=== PATIENT | male | born 1955 | race Caucasian/White ===

== ENCOUNTER 2017-05-08 06:26 | Day surgery (SDC) | payer OTHER ==
[2017-05-08] VITALS (13 sets, daily range): BP systolic 113–140; BP diastolic 79–86; PULSE 62–86; RESP 16–17; TEMP 97.7–98.8; O2SAT 94–97
[~2017-05-08] VITALS: Ht 182.9 cm; Wt 92.0 kg
[~2017-05-08 06:26] MED LIST: ASPI81CH3 CHEW; ATOR20TA15 PO; CIAL5TAB PO; FLUT50SP EACH NARE; GLYB5TAB3 PO; LISI10TA3 PO; METF1000 PO; PIOG30TA4 PO; RANI150T PO; ZYRT10CA PO
[2017-05-08] MEDS ORDERED: NS 1000P @30 MLS/HR (KVO) IV SCH (06:45)
[2017-05-08] MEDS ORDERED: METF1000 PO (07:15)
[2017-05-08] MEDS ORDERED: FLUT1SPR5 EACH NARE (07:15)
[2017-05-08] MEDS ORDERED: PIOG30TA4 PO (07:15)
[2017-05-08] MEDS ORDERED: GLYB5TAB3 PO (07:15)
[2017-05-08] MEDS ORDERED: LISI10TA3 PO (07:15)
[2017-05-08] MEDS ORDERED: RANI150T PO (07:15)
[2017-05-08] MEDS ORDERED: ATOR20TA15 PO (07:15)
[2017-05-08] MEDS ORDERED: ASPI81CH PO (07:15)
[2017-05-08] MEDS ORDERED: CIAL5TAB PO (07:15)
[2017-05-08] MEDS ORDERED: HEPARIN-NS/PF INJ 500 ML ONE (09:03)
[2017-05-08] MEDS ORDERED: MIDAZOLAM HCL 2 MG/2 ML VIAL ONE (09:04)
[2017-05-08] MEDS ORDERED: HEPARIN SODIUM - IV 10,000 UNITS/10 ML VIAL ONE (09:04)
[2017-05-08] MEDS ORDERED: STERILE WATER FOR INJECTION 10 ML VIAL ONE (09:28)
[2017-05-08] MEDS ORDERED: BIVALIRUDIN 250 MG VIAL ONE (09:28)
[2017-05-08] MEDS ORDERED: CLOPIDOGREL 300 MG TAB ONE (10:03)
[2017-05-08] MEDS ORDERED: SODIUM CHLOR 0.9% 1000 ML INJ 1,000 ML IV SCH (10:08)
[2017-05-08] MEDS ORDERED: BIVALIRUDIN INJ 250 MG in SODIUM CHLORIDE 0.9% INJ 50 ML IV SCH (10:08)
[2017-05-08] MEDS ORDERED: NITROGLYCERIN 400 MCG/SPRAY 4.9 GM BOTTLE SL ONE (10:08)
[2017-05-08] MEDS ORDERED: BACITRACIN OINT 0.9 GM PKT TOP ONE (10:15)
[2017-05-08] MEDS ORDERED: oxyCODONE/ACETAMINOPHEN 5 MG/325 MG TAB PO PRN (10:15)
[2017-05-08] MEDS ORDERED: oxyCODONE/ACETAMINOPHEN 10 MG/325 MG TAB PO PRN (10:15)
[2017-05-08] MEDS ORDERED: LIDOCAINE 2% JELLY 30 ML TUBE TOP PRN (10:15)
[2017-05-08] MEDS ORDERED: ACETAMINOPHEN 325 MG TAB PO PRN (10:15)
[2017-05-08] MEDS ORDERED: MORPHINE SULFATE 4 MG/ML INJ IV PUSH PRN (10:15)
[2017-05-08] MEDS ORDERED: ONDANSETRON HCL 4 MG/2 ML VIAL IVP PRN (10:15)
[2017-05-08] MEDS ORDERED: MISC INFORMATION XX ONE (10:15)
[2017-05-08] MEDS ORDERED: FAMOTIDINE 20 MG TAB PO PRN (10:15)
[2017-05-08] MEDS ORDERED: CLOPIDOGREL 300 MG TAB PO ONE (10:15)
[2017-05-08] MEDS ORDERED: TEMAZEPAM 15 MG CAP PO PRN (10:15)
[2017-05-08] MEDS ORDERED: ATOR40TA16 PO (10:19)
[2017-05-08] MEDS ORDERED: PLAV75TA29 PO (10:19)
[2017-05-08] MEDS ORDERED: METO25TA3 PO (10:19)
[2017-05-08] MEDS ORDERED: LISI-519 PO (10:20)
--- NOTE | 2017-05-08 10:29 | CATHPROC ---
[employer] HIS Report Study Information Study Number Admission Scheduled Start Study Start [id number] May 08 2017 6:26AM 05/08/2017 May 08 2017 9:02AM [place] [facility] Cardiac Catheterization Admit Source Facility Department Other [facility] - Trouble Clerk Physician and Clinical Staff Initial Jan Magaña Equity Holder Freddie Adhikari,RN Recorder Devin Granda RCIS(BS) Scrub Timothy BestRT(R) Procedures Performed Procedure Location (Site) Vessel Name Coronary Angiograms LCA Left Coronary Coronary Angiograms RCA Right Coronary Drug Eluting Inflatio LAD Mid Left Coronary L Heart Cath LV Gram-hand inj. LV LV Ventricle PTCA LAD Mid Left Coronary Wire insertion Radial (right) Radial Art. Equipment Time Operator Catalyst Concentration Description Size Mfg Part Number Used/Scraped TRANSDUCER, TRUWAVE [id number] 09:25 BRYANT JESUS * Used W/STOCKCOCK *[id number] CARDIOVASCULAR CATHETER, CORONARY CLASSIC [id number] 09:41 Used SYSTEMS INC. 1.25MM *[id number] CARDIOVASCULAR WIRE, VIPER ADVANCE [id number] 09:38 Used SYSTEMS INC. CORONARY FLP *[id number] *[id number] *[id number] 09:25 ZOOM TV INDUSTRIES PACK, CCL CUSTOM * Used *[id number] 09:25 BDNA SUPPORT, ARTERIAL ADULT 10037 Used [id number] 09:25 ZOOM TV PACER PEN, SKIN DUAL W/ RULER * Used *[id number] BALLOON, 1.25 X 6MM SPRINTER [id number] 09:37 MEDTRONIC 6MM Used LEGEND OTW *[id number] 09:50 MEDTRONIC BALLOON, 3.0 X 20MM EUPHORA 20MM Used *[id number] STENT, 3.0 34 RESOLUTE [id number] 09:58 MEDTRONIC 3.0 34 Used INTEGRITY RX *[id number] 09:53 Virally 30 RANDALL INDEFLATOR Used *[id number] BAND, RADIAL COMPRESSION TR [id number] 10:05 Virally 24CM Used SHORT 24 *[id number] SHEATH, FR6 RADIAL PRELUDE 09:25 Virally FR 6 [id number] Used EASE 11CM [id number] 09:25 Virally WIRE, EXCHANGE 260CM 3MMJ 260CM Used *[id number] 09:25 NYCOMED OMNIPAQUE, 350 MG, 150ML 150ML [id number] Used [id number] 09:25 FRANCOIS MEDICAL BLANKET,WARM AIR CCL * Used *[id number] WIRE, RUNTHROUGH NS FLOPPY 09:35 OKWave 300CM Used .014 300CM *[id number] Equipment Model, Serial, Lot Number and Expiration Data Description Model Number Serial Number Lot Number Expiration Date BALLOON, 1.25 X 6MM SPRINTER [id number] 01-06-2020 LEGEND OTW STENT, 3.0 34 RESOLUTE [id number] 10-10-2018 INTEGRITY RX WIRE, VIPER ADVANCE CORONARY [id number] 09-30-2018 History: Current Medications Medication Dosage/Unit Route Frequency Last Date/Time Taken ASA Statins (any) History: Allergies Allergy Reaction No Known Allergies History: Risk Factors Family History of Hypertension Dyslipidemia Previous MA Previous Heart Failure Premature CAD Yes Yes Yes No No Prior Valve Prior PCI Prior CABG Surgery No No No Cerebrovascular Peripheral Artery Chronic Lung On Dialysis Diabetes Diabetes Therapy Disease Disease Disease No No No No Yes Oral History: Symptoms/Diagnosis Selection Items Chest pain History: Stress Tests Stress or Imaging Studies Performed Yes Standard Exercise Stress Test No Stress Echo No Stress Test SPECT Stress Test SPECT Result Stress Test SPECT Ischemia Risk/Extent Yes Positive Low Stress Test CMR No Cardiac CTA Coronary Calcium Score No No History: Other Current Smoker Method Quit Packs a Day Years Used Pack Years No Cigarettes 10 Years Ago 1 20 20 Labs Hgb (g/dl) Hct (%) WBC (l/cumm) Platelets (thousands) 12.00-18.00 37.00-55.00 4.80-10.80 140.00-450.00 14.8 44.4 6.8 220 Glucose (mg/dl) BUN (mg/dl) Creatinine (mg/dl) BUN:Creatinine (1:x) 60.00-110.00 8.00-20.00 0.10-9.00 10.00-20.00 79 15 0.8 18.8 Na (meq/l) K (meq/l) 138.00-146.00 3.80-5.10 141 4.4 CPK-MB (ng/ML) 0.00-7.00 Not Drawn Medication Medication Total Dose (Bolus/Oral) Medication Total Dosage/Unit 1% XYLOCAINE 20 mL ANGIOMAX BOLUS 14 mL FENTANYL 50 mcg HEPARIN 3000 units NITROGLYCERIN S/L 0.4 mg NTG (IC) 100 mcg PLAVIX 600 mg RADIAL COCKTAIL 5 mL (Bolus) VERSED 2 mg Medications (Bolus/Oral) Medication Time Given Dosage/Unit Administered By Reason VERSED 05/08/2017 9:20:00 AM 2 mg Freddie Adhikari 2 mg VERSED given in lab by Freddie Adhikari RN in Left Antecubital via Peripheral IV. Ordered by Jan Diaz. FENTANYL 05/08/2017 9:21:00 AM 50 mcg Freddie Adhikari 50 mcg FENTANYL given in lab by Freddie Adhikari RN in Left Antecubital via Peripheral IV. Ordered by Jan Rojas. 1% XYLOCAINE 05/08/2017 9:22:54 AM 20 mL Jan Diaz 20 mL 1% XYLOCAINE given in lab by Jan Diaz in Right Radial via Subcutaneous. Ordered by Jan Diaz. Ntg 200mcg Verapamil 2.5mg Heparin RADIAL COCKTAIL 05/08/2017 9:23:37 AM 5 mL (Bolus) Jan Diaz 2000U 5 mL (Bolus) RADIAL COCKTAIL given in lab by Jan Diaz in Right Radial via Radial. Using [Soluti on Name]. Ordered by Jan Diaz. Reason: Ntg 200mcg. HEPARIN 05/08/2017 9:24:00 AM 3000 units Freddie Adhikari 3000 units HEPARIN given in lab by Freddie Adhikari RN in Left Antecubital via Peripheral IV. Ordered b y Jan Diaz. ANGIOMAX BOLUS 05/08/2017 9:33:00 AM 14 mL Freddie Adhikari 14 mL ANGIOMAX BOLUS given in lab by Freddie Adhikari RN in Left Antecubital via Peripheral IV. Ordered by Jan Diaz. NTG (IC) 05/08/2017 10:01:07 AM 100 mcg Jan Diaz 100 mcg NTG (IC) given in lab by Jan Diaz via Intra-coronary. Ordered by Jan Diaz. PLAVIX 05/08/2017 10:07:00 AM 600 mg Freddie Adhikari 600 mg PLAVIX given in lab by Freddie Adhikari RN via Oral. Ordered by Jan Diaz. NITROGLYCERIN S/L 05/08/2017 10:09:00 AM 0.4 mg Freddie Adhikari 0.4 mg NITROGLYCERIN S/L given in lab by Freddie Adhikari RN via Sublingual. Ordered by Jan Diaz. Medication (Drip) Medication Time Given Dosage/Unit Concentration/Unit Diluent (ml) Solution ANGIOMAX DRIP 05/08/2017 9:35:00 AM 1.75 mg/kg/hr 250 mg 50 NaCl .9 1.75 mg/kg/hr ANGIOMAX DRIP given in lab by Freddie Adhikari RN in Left Antecubital via Peripheral IV. Pump/Drip Flow = 32.06 ml/hr using NaCl .9 with a concentration of 250 mg in 50 ml. Ordered by Jan Diaz. IV Solutions 05/08/2017 9:02:29 AM 0 mL (IV) 500 NaCl .9 Patient arrived on IV Solutions in Left Antecubital via Peripheral IV. Pump/Drip Flow = 20 ml/hr usin g NaCl .9. Initial Case Assessment Cardiovascular HR Rhythm Chest Pain 68 SR 0 Edema Present Skin color Skin None Normal Warm Dry Circulatory - Right Pulses Dorsalis Pedis Femoral Radial 3 3 3 Scale (0,1,2,3,4,d) Circulatory - Left Pulses Dorsalis Pedis Femoral Radial 3 3 Scale (0,1,2,3,4,d) Circulatory - Lower Extremities Color Lower Right Color Lower Left Normal Normal Neurological State Oriented to time-place- Alert Moves all extremities person Respiration - General Respiration Rate SpO2 (%) (B/min) 12 100 Chronological Log Time Study Chronological Log 9:02:13 Patient arrived via Bed. 9:02:14 Patient Name, D.O.B, / Armband Verified By R.N. 9:02:15 Consent signed by the physician and the patient and verified by the Trouble Clerk staff. 9:02:15 Pre-op and post- op instructions given; patient acknowledges understanding of instructions. 9:02:16 Verbal Stimulation=2 Physical Stimulation=2 Airway=2 Respiration=2 TOTAL=8. (0=absent, 1=li mited, 2=present) 9:02:18 Allens test performed on the right radial and ulnar artery. 9:02:21 Patient has been NPO for Less than 6Hrs. 9:02:22 Skin Breakdown- 9:02:23 Patient Warmer Placed on the Table. 9:02:28 A # 20 IV was noted in the Antecubital (left). Grade = 0 9:02:29 Patient arrived on IV Solutions in Left Antecubital via Peripheral IV. Pump/Drip Flow = 20 ml/hr using NaCl .9. 9:02:30 History and physical on the chart or being dictated. Assessment: Initial Case, HR=68 BPM, Rhythm=SR, Chest Pain=0, Edema=None, Color=Normal, Skin = W arm, Dry Right Pulses: Miguel Ped=3, Femoral=3, Radial=3 Left Pulses: Miguel Ped=3, Femoral=3 9:02:31 Lower Right Extremities: Color=Normal Lower Left Extremities: Color=Normal Neurological: State=Alert, Ox3, KENT Respiration: Resp=12 B/min, OzJ6=213 % Vitals capture started with the following parameters, Patient=Adult, Interval=5 min, Initial Pre snytz=174 mmHg, 9:02:48 Deflation Rate=5 mmHg 9:04:04 HR=63 bpm, NLRS=891/77 mmhg, SpO2=99.0 %, Resp=7 B/min, Pain=0, Kulwinder=10, Cervantes=2 9:09:03 HR=75 bpm, UERG=787/86 mmhg, SpO2=99.0 %, Resp=14 B/min, Pain=0, Kulwinder=10, Cervantes=2 9:13:36 HR=64 bpm, IMCQ=907/75 mmhg, SpO2=99.0 %, Resp=16 B/min, Pain=0, Kulwinder=10, Cervantes=2 9:13:57 Pressure channel 1 zeroed. 9:14:41 Right Radial and groin(s) prepped with 2% chlorhexidine, and with a 3 min. waiting time. 9:14:47 MD paged 9:18:31 HR=73 bpm, BHRY=672/84 mmhg, SpO2=99.0 %, Resp=17 B/min, Pain=0, Kulwinder=10, Cervantes=2 9:19:05 MD arrived. 9:20:00 2 mg VERSED given in lab by Freddie Adhikari RN in Left Antecubital via Peripheral IV. Ordered by Jan Diaz. 9:20:18 Reference ECG taken 9:21:00 50 mcg FENTANYL given in lab by Freddie Adhikari RN in Left Antecubital via Peripheral IV. Ord ered by Jan Diaz. Time Out. Correct patient, correct procedure,correct physician, power injector not loaded with c karlenet with surgical 9::14 team present. Time Out Concurred by MD, individual staff in procedure 9::52 Case Start 9::54 20 mL 1% XYLOCAINE given in lab by Jan Diaz in Right Radial via Subcutaneous. Ordered by Jan Diaz. A SHEATH, FR6 RADIAL PRELUDE EASE 11CM FR 6 was advanced into the Radial (right) using the Percu whitney 9:23:00 technique. 9:23:02 Access site was RIGHT Radial Artery. 9::28 HR=79 bpm, TMFY=455/79 mmhg, SpO2=94.0 %, Resp=0 B/min, Pain=0, Kulwinder=10, Cervantes=2 5 mL (Bolus) RADIAL COCKTAIL given in lab by Jan Diaz in Right Radial via Radial. Using [S olution Name]. 9:23:37 Ordered by Jan Diaz. Reason: Ntg 200mcg. A JR 5.0 INFINITI CATHETER FR 6 was advanced over a wire. OMNIPAQUE, 350 MG, 150ML 150ML was use d for 9:24:00 injections. 9:24:00 3000 units HEPARIN given in lab by Freddie Adhikari RN in Left Antecubital via Peripheral IV. Ordered by Jan Diaz. Recorded Pressure: LV, HR=77, Condition=Condition 1 9:24:53 (Left Ventricle) LV 120/2/16 9:25:09 The LV was manually injected with 8 cc's and visualized. OMNIPAQUE, 350 MG, 150ML 150ML used . Recorded Pressure: LV, Ao, HR=76, Condition=Condition 1 9:25:20 (Left Ventricle) LV 118/5/12, (Aorta) Ao 125/61/87 9:25:30 The RCA was injected and visualized at various angles. OMNIPAQUE, 350 MG, 150ML 150ML used. After removing the current catheter a JL 3.5 INFINITI CATHETER FR 6 was advanced over a WIRE, EX CHANGE 260CM 9:26:45 3MMJ 260CM. 9:27:00 The LCA was injected and visualized at various angles. OMNIPAQUE, 350 MG, 150ML 150ML used. 9::27 HR=77 bpm, RFNA=056/71 mmhg, SpO2=91.0 %, Resp=13 B/min, Pain=0, Kulwinder=10, Cervantes=2 Recorded Pressure: Ao, HR=78, Condition=Condition 1 9:28:32 (Aorta) Ao 109/64/82 9:30:09 Catheter was removed A AL 1.5 GUIDE CATHETER FR 6 was advanced over a wire. OMNIPAQUE, 350 MG, 150ML 150ML was used f or 9:31:52 injections. 14 mL ANGIOMAX BOLUS given in lab by Freddie Adhikari RN in Left Antecubital via Peripheral IV. Or dered by Joe, 9:33:00 Jan. 9:33:26 HR=89 bpm, EETZ=927/65 mmhg, SpO2=93.0 %, Resp=13 B/min, Pain=0, Kulwinder=10, Cervantes=2 1.75 mg/kg/hr ANGIOMAX DRIP given in lab by Freddie Adhikari RN in Left Antecubital via Periphera l IV. Pump/Drip Flow 9:35:00 = 32.06 ml/hr using NaCl .9 with a concentration of 250 mg in 50 ml. Ordered by Jan Diaz. 9:36:26 A WIRE, RUNTHROUGH NS FLOPPY .014 300CM 300CM was inserted via Radial (right). 9:38:25 HR=85 bpm, KMWN=820/72 mmhg, SpO2=97.0 %, Resp=13 B/min, Pain=0, Kulwinder=10, Cervantes=2 Recorded Pressure: Ao, HR=87, Condition=Condition 1 9:38:32 (Aorta) Ao 125/69/96 A BALLOON, 1.25 X 6MM SPRINTER LEGEND OTW 6MM was inserted over WIRE, RUNTHROUGH NS FLOPPY .014 9:38:47 300CM 300CM via the Radial (right). 9:40:07 Wire removed 9:41:33 A WIRE, VIPER ADVANCE CORONARY was inserted via Radial (right). 9:41:58 Balloon Removed. 9:43:00 An CATHETER, CORONARY CLASSIC 1.25MM catheter was inserted into the Radial (right). 9:44:07 HR=84 bpm, LLHB=183/93 mmhg, SpO2=98.0 %, Resp=15 B/min, Pain=0, Kulwinder=10, Cervantes=2 9:46:24 CSI DIAMONDBACK 360 IN PROGRESS 9:48:35 HR=77 bpm, TAZT=882/92 mmhg, SpO2=99.0 %, Resp=13 B/min, Pain=0, Kulwinder=10, Cervantes=2 9:49:53 CSI DIAMONDBACK 360 REMOVED A BALLOON, 1.25 X 6MM SPRINTER LEGEND OTW 6MM was inserted over WIRE, VIPER ADVANCE CORONARY vi a the 9:50:09 Radial (right). 9:51:02 The previous wire was exchanged for a WIRE, RUNTHROUGH NS FLOPPY .014 300CM 300CM. 9:51:29 Balloon Removed. A BALLOON, 3.0 X 20MM EUPHORA 20MM was inserted over WIRE, RUNTHROUGH NS FLOPPY .014 300CM 300C M via 9:52:00 the Radial (right). A BALLOON, 3.0 X 20MM EUPHORA 20MM over a WIRE, RUNTHROUGH NS FLOPPY .014 300CM 300CM in the LA D Mid 9:52:49 was inflated using a 30 RANDALL INDEFLATOR at 12 randall for 20 sec. 9:53:32 HR=86 bpm, LRGY=197/95 mmhg, SpO2=97.0 %, Resp=15 B/min, Pain=0, Kulwinder=10, Cervantes=2 A BALLOON, 3.0 X 20MM EUPHORA 20MM over a WIRE, RUNTHROUGH NS FLOPPY .014 300CM 300CM in the LA D Mid 9:54:08 was inflated using a 30 RANDALL INDEFLATOR at 12 randall for 10 sec. 9:57:08 Balloon Removed. 9:58:35 HR=80 bpm, FRWA=511/88 mmhg, SpO2=99.0 %, Resp=16 B/min, Pain=0, Kulwinder=10, Cervantes=2 A STENT, 3.0 34 RESOLUTE INTEGRITY RX 3.0 34 was advanced through a AL 1.5 GUIDE CATHETER FR 6 over a 9:58:58 WIRE, RUNTHROUGH NS FLOPPY .014 300CM 300CM. A STENT, 3.0 34 RESOLUTE INTEGRITY RX 3.0 34 was deployed using a 30 RANDALL INDEFLATOR at 18 atmos pheres for 9:59:13 15 seconds in the LAD Mid. 10:00:19 Delivery device removed 10:01:07 100 mcg NTG (IC) given in lab by Jan Diaz via Intra-coronary. Ordered by Isaura Diaz en. 10:02:21 Wire removed 10::25 Catheter was removed 10:02:32 Case End 10:03:36 HR=78 bpm, IVGL=464/80 mmhg, SpO2=97.0 %, Resp=17 B/min, Pain=0, Kulwinder=10, Cervantes=2 10:07:00 600 mg PLAVIX given in lab by Freddie Adhikari, RN via Oral. Ordered by Jan Diaz. Radial Compression Device Used. 12 mLs of air placed in BAND, RADIAL COMPRESSION TR SHORT 24 24 CM. Affected 10:07:46 hand 95 % O2 saturation. 10:07:47 Sterile dressing applied to site 10:07:48 No case complications noted. 10:07:49 Cine recording checked. 10:07:52 Implantable Device card placed in patient's chart. 10:07:54 Bedside Report will be given. 10:07:56 Contrast Scanned 10:07:59 A Left Heart Cath was performed. 10:08:35 HR=78 bpm, GQQT=354/82 mmhg, SpO2=98.0 %, Resp=2 B/min, Pain=0, Kulwinder=10, Cervantes=2 10:09:00 0.4 mg NITROGLYCERIN S/L given in lab by Freddie Adhikari, RN via Sublingual. Ordered by Jan Kendall. 10:12:00 Patient moved to [facility] End Study - Contrast Media Used In Study Contrast Total Opened (mL) Total Used (mL) Total Wasted (mL) Omnipaque 140 140 0 End Study - Maximum Contrast Load Max Contrast Load (mL) 572.4 End Study - Radiation Exposure Fluoro Time (minutes) 11.1 End Study - Patient Disposition Complications Transferred To Interventional Outcome No Telemetry Bed successful
--- NOTE | 2017-05-08 11:34 | MA ---
cc: LICO OROZCO DATE: 05/08/2017 PROCEDURE PERFORMED 1. Fluoroscopy with interpretation. 2. Coronary angiography. 3. Left heart catheterization 4. Left ventriculography. 5. Orbital rotational atherectomy of the left anterior descending coronary artery. 6. Percutaneous endovascular stenting with drug-eluting stent to the mid left anterior descending coronary artery. METHOD The risks, benefits and alternatives were discussed with the patient. The patient understood and consented to the procedure. The patient was brought into the cardiac catheterization lab and placed on the catheterization table. The right wrist was prepped and draped in a sterile fashion. The right wrist was anesthetized with 2% lidocaine. The right radial artery was cannulated and a 6-[place]ao [place]an, 7 cm sheath was placed without difficulty. LEFT HEART CATHETERIZATION A 6-[place] JR5 catheter was advanced across the aortic valve without difficulty. Intraventricular hemodynamics showed 118/5 mmHg. No aortic valve stenosis by transaortic valve or pullback gradient. LEFT VENTRICULOGRAPHY Left ventriculography was performed in a right anterior oblique view using a 6-[place] JR5 catheter and a 12 cc contrast injection with good opacification. Left ventricular ejection fraction visually estimated at 65% without regional wall motion abnormalities. CORONARY ANGIOGRAPHY Left coronary circulation was selectively engaged with a 6-[place] JL 3.5 catheter. Right coronary circulation was selectively engaged with a 6-[place] JR5 catheter. CORONARY ANATOMY 1. The left main coronary is angiographically normal. 2. The left anterior descending coronary has moderate calcium present in the proximal and moderate to severe calcium present in the mid segment. The mid segment is 99% subtotally occluded with JUAN-II flow. There is a small diagonal branch at the bifurcation of the occlusion. The remainder of the vessel has minor luminal irregularities. 3. The left circumflex gives rise to a high first obtuse marginal branch with a 50% ostial stenosis. There is 30% stenosis in the proximal to mid segment of the left circumflex coronary artery. The left circumflex is a dominant vessel giving rise to a left-sided posterior descending branch which is angiographically normal. 4. The right coronary is nondominant and angiographically normal. PERCUTANEOUS INTERVENTION The left coronary circulation was selectively engaged with a 6-[place] AL 1.5 guide catheter. A 0.014 inch, 300 cm [employer] Runthrough wire was navigated down to the distal left anterior descending coronary artery. A 1.25 x 6 mm over the wire balloon was advanced down to the distal left anterior descending coronary artery and the wire removed. A 0.014 inch, 335 cm Viper wire was navigated down to the distal LAD and the over the wire balloon removed. Angiomax was administered throughout the entire procedure to maintain appropriate anticoagulation. A 1.25 mm CSI coronary atherectomy catheter was then prepped and advanced over the wire. Orbital rotational atherectomy was performed on four sequential passes at 60,000 revolutions per minute in the mid left anterior descending coronary artery. A 3.0 x 20 mm RX Euphora balloon was then deployed on two sequential inflations in the mid left anterior descending coronary to 12 atmospheres. Repeat angiography showed JUAN-III flow, still severe residual stenosis. A 3.0 x 34 mm RX Resolute drug-eluting stent was advanced down to the mid left anterior descending coronary and deployed. Repeat angiography showed no residual stenosis, JUAN-III flow. The wire was removed. The guide catheter was removed. HemoBand was applied. CONCLUSIONS 1. Severe subtotally occluded and heavily calcified mid left anterior descending coronary stenosis. 2. Moderate first obtuse marginal branch ostial stenosis. 3. Normal left-sided filling pressures with normal left ventricular systolic function. 4. Successful orbital rotational atherectomy of the mid left anterior descending coronary followed by drug-eluting stent placement. PLAN Hopefully this will translate well with symptomatic improvement. He will be initiated on Plavix, continued on aspirin. Will titrate the statin to 40 mg a day and add a beta kurt. Will follow him closely overnight and if he does well without any post-procedural complications, anticipate discharge tomorrow with follow-up. MD THIEN Tenorio/ARIES /10:25 AM /11:18 AM
[2017-05-08] MEDS ORDERED: IOHEXOL 350 MG/ML 100 ML BTL (for Cath Lab) OTHER ONE (12:10)
[2017-05-08] MEDS ORDERED: IOHEXOL 350 MG/ML 50 ML BTL (for Cath Lab) OTHER ONE (12:10)
[2017-05-08] MEDS ORDERED: METOPROLOL TARTRATE 25 MG TAB PO SCH (21:00)
[2017-05-09] VITALS (7 sets, daily range): BP systolic 133; BP diastolic 81; PULSE 68–79; RESP 16; TEMP 98; O2SAT 94
[2017-05-09 04:06] LABS: BASOPHIL # 0.1 TH/MM3 (0-0.2); BASOPHIL % 0.6 % (0.0-2.0); EOSINOPHIL # 0.3 TH/MM3 (0-0.4); EOSINOPHIL % 3.4 % (0.0-4.0); HEMO FLAGS DIFF FINAL; LYMPH % 16.2 % (9.0-44.0); LYMPHOCYTE # 1.4 TH/MM3 (1.0-4.8); MEAN CELL VOLUME 90.9 FL (80.0-100.0); MEAN CORPUSCULAR HEMOGLOBIN 30.3 PG (27.0-34.0); MEAN CORPUSCULAR HGB CONC 33.3 % (32.0-36.0); MONO % 9.5 % (0.0-8.0); NEUT % 70.3 % (16.0-70.0); PLATELET COUNT 198 TH/MM3 (150-450); RED BLOOD COUNT 4.85 MIL/MM3 (4.50-5.90); RED CELL DISTRIBUTION WIDTH 12.6 % (11.6-17.2); WHITE BLOOD COUNT 8.6 TH/MM3 (4.0-11.0)
[2017-05-09 04:35] LABS: HDL CHOLESTEROL 41.2 MG/DL (40.0-60.0)
[2017-05-09 04:37] LABS: BICARBONATE 25.7 MEQ/L (21.0-32.0)
--- NOTE | 2017-05-09 07:59 | HHI.DS ---
Discharge Summary Admission Date Discharge Date: May 09, 2017 Admitting Diagnosis CAD Procedures coronary angiogram and PCI CBC/BMP: 05/09/17 0325 05/09/17 0325 Significant Findings Laboratory Tests Test 05/09/17 03:25 Neutrophils (%) (Auto) 70.3 % (16.0-70.0) Monocytes (%) (Auto) 9.5 % (0.0-8.0) LDL Cholesterol 120 MG/DL (0-99) Hospital Course Pt borught in to hospital as an outpatient for coronary angiogram.He was found to have a mid LAD subtotal occlusion. Then he underwent PCI with orbital rotational atherectomy f/b MERCEDES mid LAD . Today he is asymptomatic Pt Condition on Discharge: Good Discharge Disposition: Discharge Home Discharge Instructions DIET: Follow Instructions for: Heart Healthy Diet Activities you can perform: See Additionl Instruction Other Activity Instructions: rest today and back to regular activities tomorrow Hossein Ochoa May 09, 2017 07:59
[2017-05-09] MEDS ORDERED: PIOGLITAZONE HCL 30 MG TAB PO SCH (08:00)
[2017-05-09] MEDS ORDERED: glyBURIDE 5 MG TAB PO SCH (08:00)
[2017-05-09] MEDS ORDERED: ATORVASTATIN 40 MG TAB PO SCH (09:00)
[2017-05-09] MEDS ORDERED: CLOPIDOGREL 75 MG TAB PO SCH (09:00)
[2017-05-09] MEDS ORDERED: LISINOPRIL 10 MG TAB PO SCH (09:00)
[2017-05-09] MEDS ORDERED: LISINOPRIL 5 MG TAB PO SCH (09:00)
[2017-05-09] MEDS ORDERED: ASPIRIN 81 MG CHEW TAB PO SCH (09:00)
--- NOTE | 2017-05-09 17:20 | EKG ---
Date Performed: 05/09/2017 Time Performed: 06:01:04 PTAGE: 61 years EKG: Sinus rhythm Ant/septal and lateral T wave changes are nonspecific Borderline ECG PREVIOUS TRACING : 05/08/2017 11.20 Compared to prior tracing no significant change DOCTOR: Azam Colon Interpretating Date/Time 05/09/2017 17:19:36
--- NOTE | 2017-05-09 18:00 | EKG ---
Date Performed: 05/08/2017 Time Performed: 11:20:26 PTAGE: 61 years EKG: Sinus rhythm Septal T wave changes are nonspecific Borderline ECG NO PREVIOUS TRACING DOCTOR: Azam Colon Interpretating Date/Time 05/09/2017 17:58:59
== END 2017-05-09 11:05 | disposition home or self-care (01) ==
LOC: HDIC 06:26 → HCAT 06:26 → HCIS 11:43 → HCAT 05-09 11:05
PROVIDERS: ATTEND Internal Medicine
DX: I25.10 Atherosclerotic heart disease of native coronary artery without angina pectoris (principal); E11.9 Type 2 diabetes mellitus without complications; I10 Essential (primary) hypertension; E78.5 Hyperlipidemia, unspecified; Z79.84 Long term (current) use of oral hypoglycemic drugs; Z87.891 Personal history of nicotine dependence; Z01.810 Encounter for preprocedural cardiovascular examination; Z01.818 Encounter for other preprocedural examination
CPT/HCPCS: 80048; 80061; 82550; 82948; 85025; 86850; 86900; 86901; 92933; 93005; 93458; C1714; C1725; C1769; C1874; C1887; C1893; J0583; J1644; J2250; J3010; J7030; Q9967